=== PATIENT | male | born 1985 | race Caucasian/White ===

== ENCOUNTER 2019-12-13 04:26 | Emergency (ER) | payer OTHER ==
[~2019-12-13] VITALS: Ht 180.3 cm; Wt 86.2 kg
== END 2019-12-13 06:22 ==
LOC: ER 04:26
DX: S13.4XXA Sprain of ligaments of cervical spine, initial encounter (principal); V49.88XA Car occupant (driver) (passenger) injured in other specified transport accidents, initial encounter; Y93.89 Activity, other specified; Y92.488 Other paved roadways as the place of occurrence of the external cause; Y99.8 Other external cause status